=== PATIENT | female | born 1955 | race African-American/Black ===

== ENCOUNTER 2016-12-18 02:05 | Inpatient (IN) | payer OTHER, MEDICARE ==
[~2016-12-18] VITALS: Ht 167.6 cm; Wt 120.1 kg
[2016-12-18] VITALS (12 sets, daily range): BP systolic 165–217; BP diastolic 76–99; PULSE 84–100; RESP 18–24; TEMP 96.8–98.8; O2SAT 88–98
[~2016-12-18 02:05] MED LIST: ALBU17I INH; ALBU6.7H INH; DRIS8000 PO; ECOT81TA2 PO; IRON18TA2 PO; LOSA25 PO; MECL25 PO; METO25CR PO; NIFE1TAB86 PO; PRAV20 PO; PRED50 PO; SYMB160A INH; TRAD5TAB PO
--- NOTE | 2016-12-18 02:25 | PD ---
HPI Chief Complaint: Respiratory Symptoms Time Seen by Provider: 02:23 Travel History International Travel<30 days: No Contact w/Intl Traveler<30days: No Traveled to known affect area: No History of Present Illness HPI This is a 61-year-old female who has a history of COPD who presents to the emergency department with 3 days of increasing shortness of breath associated with a productive cough with green sputum, constant, worsening despite using nebulizer treatments at home, moderate severity associated with some fevers at the beginning of her illness. She does not use oxygen at home. She denies any chest pain. She has had some swelling in both of her legs which is not new. PFSH Past Medical History Blood Disorders: No Depression: Yes Cancer: No Cardiovascular Problems: Yes (htn) Congestive Heart Failure: Yes COPD: Yes Cerebrovascular Accident: No Diabetes: Yes Diminished Hearing: No Endocrine: Yes Genitourinary: No Hypertension: Yes Immune Disorder: No Musculoskeletal: No Neurologic: Yes (BELLS PALSEY) Psychiatric: Yes Reproductive: No Respiratory: Yes (copd) Migraines: No Seizures: No Menopausal: Yes Past Surgical History Abdominal Surgery: No Cardiac Surgery: No Ear Surgery: No Endocrine Surgery: No Eye Surgery: Yes Genitourinary Surgery: No Gynecologic Surgery: No Oral Surgery: No Other Surgery: Yes (FACE SURGERY) Social History Alcohol Use: No Tobacco Use: No (QUIT 06/22; PRIOR HX STS 3/4 PPD) Substance Use: No Allergies-Medications (Allergen,Severity, Reaction): Coded Allergies: Codeine (Verified Adverse Reaction, Intermediate, JITTERY, NAUSEA, 12/18/16) Reported Meds & Prescriptions Reported Meds & Active Scripts Active Reported Ferrous Fumarate 29 Mg Tab 18 Mg PO DAILY Symbicort Inh (Budesonide/Formoterol Fumarate) 160-4.5 Mcg/Act Aero 1 Puff INH Q12HR Ventolin Hfa 18 GM Inh (Albuterol Sulfate) 90 Mcg/Act Aer 2 Puff INH Q4-6H PRN Losartan (Losartan Potassium) 25 Mg Tab 25 Mg PO DAILY Metoprolol Succinate ER 24 HR (Metoprolol Succinate) 25 Mg Tab 25 Mg PO BID Tradjenta (Linagliptin) 5 Mg Tab 5 Mg PO DAILY Review of Systems Except as stated in HPI: all other systems reviewed are Neg Physical Exam Narrative GENERAL:Well appearing, no acute distress SKIN: Scar involving the right face HEAD: Atraumatic. Normocephalic. EYES: Pupils equal and round. No injection or drainage. ENT: Moist mucous membranes NECK: Trachea midline. CARDIOVASCULAR: Regular rate and rhythm. No murmur appreciated. 2+ bilateral lower extremity pitting edema. RESPIRATORY: Diffuse expiratory wheezing with poor air movement with no accessory muscle use, speaking full sentences GASTROINTESTINAL: Abdomen soft, non-tender, nondistended. MUSCULOSKELETAL: No obvious deformities. NEUROLOGICAL: Awake and alert. No obvious cranial nerve deficits. Moving all extremities. PSYCHIATRIC: Appropriate mood and affect; insight and judgment normal. Data Data Last Documented VS Vital Signs Date Time Temp Pulse Resp B/P Pulse Ox O2 Delivery O2 Flow Rate FiO2 12/18/16 03:27 93 20 214/94 93 Room Air 12/18/16 02:27 2 12/18/16 02:08 98.8 Orders Complete Blood Count With Diff (12/18/16 02:23) Comprehensive Metabolic Panel (12/18/16 02:23) B-Type Natriuretic Peptide (12/18/16 02:23) Influenzae A/B Antigen (12/18/16 02:23) Iv Access Insert/Monitor (12/18/16 02:23) Ecg Monitoring (12/18/16 02:23) Oximetry (12/18/16 02:23) Oxygen Administration (12/18/16 02:23) Chest, Single Ap (12/18/16 02:23) Sodium Chloride 0.9% Flush (Ns Flush) (12/18/16 02:30) Methylprednisolone So Succ Inj (Solumedr (12/18/16 02:30) Albuterol-Ipratropium Neb (Duoneb Neb) (12/18/16 02:30) Metoprolol Tartrate (Lopressor) (12/18/16 03:30) Azithromycin (Zithromax) (12/18/16 04:15) Labs Laboratory Tests Test 12/18/16 02:26 White Blood Count 11.0 TH/MM3 Red Blood Count 4.88 MIL/MM3 Hemoglobin 12.8 GM/DL Hematocrit 39.0 % Mean Corpuscular Volume 80.1 FL Mean Corpuscular Hemoglobin 26.2 PG Mean Corpuscular Hemoglobin 32.8 % Concent Red Cell Distribution Width 15.4 % Platelet Count 228 TH/MM3 Mean Platelet Volume 8.5 FL Neutrophils (%) (Auto) 75.1 % Lymphocytes (%) (Auto) 15.3 % Monocytes (%) (Auto) 8.0 % Eosinophils (%) (Auto) 1.2 % Basophils (%) (Auto) 0.4 % Neutrophils # (Auto) 8.3 TH/MM3 Lymphocytes # (Auto) 1.7 TH/MM3 Monocytes # (Auto) 0.9 TH/MM3 Eosinophils # (Auto) 0.1 TH/MM3 Basophils # (Auto) 0.0 TH/MM3 CBC Comment DIFF FINAL Differential Comment Sodium Level 142 MEQ/L Potassium Level 4.2 MEQ/L Chloride Level 105 MEQ/L Carbon Dioxide Level 30.9 MEQ/L Anion Gap 6 MEQ/L Blood Urea Nitrogen 22 MG/DL Creatinine 1.73 MG/DL Estimat Glomerular Filtration 36 ML/MIN Rate Random Glucose 106 MG/DL Calcium Level 9.6 MG/DL Total Bilirubin 0.3 MG/DL Aspartate Amino Transf 40 U/L (AST/SGOT) Alanine Aminotransferase 28 U/L (ALT/SGPT) Alkaline Phosphatase 98 U/L B-Type Natriuretic Peptide 57 PG/ML Total Protein 8.1 GM/DL Albumin 3.5 GM/DL MDM Medical Decision Making Medical Screen Exam Complete: Yes Emergency Medical Condition: Yes Interpretation(s) Afebrile, tachycardic, hypertensive, hypoxic No leukocytosis Renal insufficiency slightly worse than 2015 BNP is normal Chest x-ray: No acute process Differential Diagnosis Congestive heart failure, COPD exacerbation, pneumonia, pulmonary embolism, influenza Narrative Course This is a 61-year-old female with a history of COPD who presents to the emergency department with shortness of breath and productive cough been going on for several days. She was placed on a monitor and an IV was established. Labs are all reassuring and chest x-ray demonstrated no pneumonia. She is found to be hypoxic and diffusely wheezing. She was given bronchodilator treatments and IV steroids. Her symptoms improved somewhat but she continued to desaturate into the high 80s with minimal exertion. She does not use oxygen at home. Patient will be admitted for persistent hypoxia in the setting of COPD exacerbation. Physician Communication Physician Communication Discussed with Dr. Vazquez Diagnosis Primary Impression: COPD exacerbation Admitting Information Admitting Physician Requests: Admit Sulma Smith MD Dec 18, 2016 02:25
[2016-12-18] MEDS ORDERED: methylPREDNISolone SOD SUCC 125 MG/2 ML VIAL IVP ONE (02:30)
[2016-12-18] MEDS ORDERED: SODIUM CHLORIDE 0.9% FLUSH 10 ML FLUSH IVF PRN (02:30)
[2016-12-18] MEDS ORDERED: TRAD5TAB PO (02:35)
[2016-12-18] MEDS ORDERED: LOSA25TA PO (02:35)
[2016-12-18] MEDS ORDERED: VENTAER INH (02:35)
[2016-12-18] MEDS ORDERED: FERR29TA PO (02:35)
[2016-12-18] MEDS ORDERED: METO25TA6 PO (02:35)
[2016-12-18] MEDS ORDERED: SYMB160A INH ×2 (02:35→14:50)
[2016-12-18 02:50] LABS: AUTOMATED NEUTROPHIL # 8.3 TH/MM3 (1.8-7.7); BASOPHIL % 0.4 % (0.0-2.0); EOSINOPHIL # 0.1 TH/MM3 (0-0.4); EOSINOPHIL % 1.2 % (0.0-4.0); HEMO FLAGS DIFF FINAL; LYMPH % 15.3 % (9.0-44.0); LYMPHOCYTE # 1.7 TH/MM3 (1.0-4.8); MEAN CELL VOLUME 80.1 FL (80.0-100.0); MEAN CORPUSCULAR HEMOGLOBIN 26.2 PG (27.0-34.0); MEAN CORPUSCULAR HGB CONC 32.8 % (32.0-36.0); NEUT % 75.1 % (16.0-70.0); PLATELET COUNT 228 TH/MM3 (150-450); RED BLOOD COUNT 4.88 MIL/MM3 (4.00-5.30); RED CELL DISTRIBUTION WIDTH 15.4 % (11.6-17.2)
[2016-12-18] MEDS: RESP: ALBUTEROL 2.5 MG/IPRATROPIUM 0.5 MG NEB (SCH) INH ×2 (02:53→02:54)
[2016-12-18 03:05] LABS: ALT (GPT) 28 U/L (10-53); ANION GAP 6 MEQ/L (5-15); AST (GOT) 40 U/L (15-37); BICARBONATE 30.9 MEQ/L (21.0-32.0); BLOOD UREA NITROGEN 22 MG/DL (7-18); CHLORIDE 105 MEQ/L (98-107); GLOMERULAR FILTRATION RATE 36 ML/MIN (>89); POTASSIUM 4.2 MEQ/L (3.5-5.1); SODIUM (NA) 142 MEQ/L (136-145)
[2016-12-18 03:07] LABS: ALKALINE PHOSPHATASE 98 U/L (45-117); TOTAL BILIRUBIN ADULT 0.3 MG/DL (0.2-1.0)
--- NOTE | 2016-12-18 03:18 | RADRPT ---
EXAM DATE/TIME: 12/18/2016 02:41 [facility] COMPARISON: CHEST SINGLE AP, November 25, 2014, 2:16. INDICATIONS : Shortness of breath. MEDICAL HISTORY : Hypertension. Chronic obstructive pulmonary disease. SURGICAL HISTORY : None. ENCOUNTER: Initial ACUITY: 1 day PAIN SCORE: 0/10 LOCATION: Bilateral chest FINDINGS: The lungs are clear without infiltrate, nodule, or mass. There is no appreciable pleural effusion fo r technique. Heart and mediastinum are unremarkable. CONCLUSION: No acute cardiopulmonary disease. Francisco Miramontes MD on December 18, 2016 at 3:16 Board Certified Radiologist. This report was verified electronically.
[2016-12-18] MEDS ORDERED: METOPROLOL TARTRATE 25 MG TAB PO ONE (03:30)
[2016-12-18] MEDS ORDERED: AZITHROMYCIN 250 MG TAB PO ONE (04:15)
[2016-12-18] MEDS ORDERED: RESP: ALBUTEROL 1.25 MG/3 ML NEB (PRN) NEB (04:30)
[2016-12-18] MEDS ORDERED: GLUCAGON 1 MG/ML VIAL OTHER PRN (04:30)
[2016-12-18] MEDS ORDERED: DEXTROSE 50% IN WATER 50 ML VIAL(D50) IV PUSH PRN (04:30)
[2016-12-18] MEDS ORDERED: ONDANSETRON HCL 4 MG/2 ML VIAL IV PUSH PRN (04:30)
[2016-12-18] MEDS ORDERED: NIFEdipine 30 MG SUSTAINED RELEASE TAB PO ONE (06:00)
[2016-12-18] MEDS ORDERED: NIFEdipine 30 MG SUSTAINED RELEASE TAB PO SCH (06:00)
[2016-12-18] MEDS: INSULIN ASPART SUPPLEMENTAL SCALE SQ SCH ×3 (06:24→16:23)
--- NOTE | 2016-12-18 07:55 | HHI.HP ---
[facility] Marybeth Covarrubias MD Admission Diagnosis copd exacerbation Diagnoses: Chief Complaint: Shortness of breath Travel History International Travel<30 Days: No Contact w/Intl Traveler <30 Da: No Traveled to Known Affected Are: No History of Present Illness 61-year-old female with a medical history significant for hypertension, hyperlipidemia, type 2 diabetes and COPD presents to the emergency room with complaint of 3 days of worsening shortness of breath, cough with green and white sputum production. Patient is unsure whether or not she has had fevers. She tried nebulizer treatment at home without improvement in shortness of breath. She reports previously having problems with shortness of breath when she gets a cold but has never required hospitalizations. She does have chronic bilateral lower extremity swelling. Review of Systems Constitutional: DENIES: Fever, Chills Respiratory: COMPLAINS OF: Cough, Sputum production, Shortness of breath Cardiovascular: DENIES: Chest pain, Palpitations Except as stated in HPI: all other systems reviewed are Neg Past Family Social History Past Medical History Hypertension Hyperlipidemia COPD Diabetes Chronic kidney disease Past Surgical History Left shoulder surgery Hernia repair Facial reconstructive surgery. Reported Medications Reported Meds & Active Scripts Active Reported Amlodipine (Amlodipine Besylate) 5 Mg Tab 5 Mg PO DAILY Ferrous Fumarate 29 Mg Tab 18 Mg PO DAILY Symbicort Inh (Budesonide/Formoterol Fumarate) 160-4.5 Mcg/Act Aero 1 Puff INH Q12HR Ventolin Hfa 18 GM Inh (Albuterol Sulfate) 90 Mcg/Act Aer 2 Puff INH Q4-6H PRN Losartan (Losartan Potassium) 25 Mg Tab 25 Mg PO DAILY Metoprolol Succinate ER 24 HR (Metoprolol Succinate) 25 Mg Tab 25 Mg PO BID Tradjenta (Linagliptin) 5 Mg Tab 5 Mg PO DAILY Allergies: Coded Allergies: Codeine (Verified Adverse Reaction, Intermediate, JITTERY, NAUSEA, 12/18/16) Family History Mother with history of renal failure. Two sisters on dialysis one sister with breast cancer Social History Patient admits to smoking three-quarter pack per day for the past 40+ years. Denies alcohol or illicit drug use Physical Exam Vital Signs Vital Signs Date Time Temp Pulse Resp B/P Pulse Ox O2 Delivery O2 Flow Rate FiO2 12/18/16 06:00 97.6 88 20 187/89 96 12/18/16 05:44 88 18 176/85 94 Nasal Cannula 2 12/18/16 05:36 174/86 12/18/16 05:17 94 Nasal Cannula 2.00 12/18/16 03:27 93 20 214/94 93 Room Air 12/18/16 02:27 93 Nasal Cannula 2 12/18/16 02:23 92 22 93 2 12/18/16 02:21 90 22 217/99 88 12/18/16 02:15 92 24 217/99 88 Room Air 12/18/16 02:08 98.8 100 24 166/81 92 Room Air Physical Exam CONSTITUTIONAL/GENERAL: Obese female in no apparent distress. Vital signs reviewed SKIN: No jaundice, rashes, or concerning lesions. Not diaphoretic. HEAD: Atraumatic. Normocephalic. EYES: Pupils equal and round and reactive. Extra ocular motions are intact. No scleral icterus. No injection or drainage. ENT: Hearing grossly normal. Nose without drainage. Throat without visible erythema, exudates, masses, or lesions. NECK: Trachea midline. Neck is supple, non-tender. No palpable thyroid enlargement or nodularity. CARDIOVASCULAR: Normal rate and regular rhythm without murmurs, gallops, or rubs. No JVD. Peripheral pulses 2+ and symmetric. RESPIRATORY/CHEST: Symmetric, diffuse wheezing and rhonchi bilaterally. GASTROINTESTINAL: Abdomen soft, non-tender, non-distended. No hepato- splenomegaly, or palpable masses. No guarding. Bowel sounds present. MUSCULOSKELETAL: Extremities without clubbing, cyanosis, or edema. No joint tenderness or effusion noted. No calf tenderness. No mottling or clubbing. NEUROLOGICAL: Awake and alert. Motor and sensory grossly within normal limits. Follows commands. Move all extremities spontaneously. No focal deficits. PSYCHIATRIC: No obvious mood problems. No apparent hallucinations or other psychotic thought process. Laboratory Laboratory Tests Test 12/18/16 02:26 White Blood Count 11.0 Red Blood Count 4.88 Hemoglobin 12.8 Hematocrit 39.0 Mean Corpuscular Volume 80.1 Mean Corpuscular Hemoglobin 26.2 Mean Corpuscular Hemoglobin 32.8 Concent Red Cell Distribution Width 15.4 Platelet Count 228 Mean Platelet Volume 8.5 Neutrophils (%) (Auto) 75.1 Lymphocytes (%) (Auto) 15.3 Monocytes (%) (Auto) 8.0 Eosinophils (%) (Auto) 1.2 Basophils (%) (Auto) 0.4 Neutrophils # (Auto) 8.3 Lymphocytes # (Auto) 1.7 Monocytes # (Auto) 0.9 Eosinophils # (Auto) 0.1 Basophils # (Auto) 0.0 CBC Comment DIFF FINAL Differential Comment Sodium Level 142 Potassium Level 4.2 Chloride Level 105 Carbon Dioxide Level 30.9 Anion Gap 6 Blood Urea Nitrogen 22 Creatinine 1.73 Estimat Glomerular Filtration 36 Rate Random Glucose 106 Calcium Level 9.6 Total Bilirubin 0.3 Aspartate Amino Transf 40 (AST/SGOT) Alanine Aminotransferase 28 (ALT/SGPT) Alkaline Phosphatase 98 B-Type Natriuretic Peptide 57 Total Protein 8.1 Albumin 3.5 Date/Time Procedure Status Source Growth 12/18/16 02:26 Influenza Types A,B Antigen (NICO) - Final Complete Nasal Washing NEGATIVE FOR FLU A AND B ANTIGEN.... Result Diagram: 12/18/1622512/18/16225 Imaging Last Impressions Chest X-Ray 12/18/16222 Signed Impressions: Service Date/Time: Sunday, December 18, 2016 02:41 - CONCLUSION: No acute cardiopulmonary disease. Francisco Miramontes MD Assessment and Plan Problem List: (1) COPD exacerbation ICD Code: J44.1 Status: Acute Plan: - IV Solu-Medrol ordered - Scheduled breathing treatments with duo nebs. Albuterol nebs as needed. - Antibiotics with Rocephin and azithromycin - Supplemental oxygen as needed - Incentive spirometer (2) Hypertension ICD Code: I10 Status: Acute Plan: Uncontrolled. Restart home dose losartan, metoprolol, and Norvasc. Add clonidine as needed (3) Diabetes ICD Code: E11.9 Status: Acute Plan: Resume home dose Tradjenta. Expect worsening of blood glucose from steroids. - Sliding scale insulin with Accu-Cheks. (4) Hyperlipidemia ICD Code: E78.5 Status: Acute Plan: Continue statin (5) Kidney disease, chronic, stage III (GFR 30-59 ml/min) ICD Code: N18.3 Status: Acute Plan: Continue to monitor. Avoid nephrotoxins Assessment and Plan GI prophylaxis: PPI. Stool softener PRN constipation. DVT PPx: Lovenox Discussed Condition With RN Physician Certification 2 Midnight Certification Type: Admission for Inpatient Services Order for Inpatient Services The services are ordered in accordance with Medicare regulations or non- Medicare payer requirements, as applicable. In the case of services not specified as inpatient-only, they are appropriately provided as inpatient services in accordance with the 2-midnight benchmark. Estimated LOS (days): 3 days is the estimated time the patient will need to remain in the hospital, assuming treatment plan goals are met and no additional complications. Post-Hospital Plan: Home Edis Vann MD Dec 18, 2016 07:55
[2016-12-18] MEDS: RESP: ALBUTEROL 2.5 MG/IPRATROPIUM 0.5 MG NEB (SCH) NEB ×3 (08:09→15:54)
[2016-12-18] MEDS ORDERED: cloNIDine HCL 0.1 MG TAB PO PRN (08:30)
[2016-12-18] MEDS ORDERED: BUDESONIDE-FORMOTEROL 160/4.5 MCG INHALER INH SCH (09:00)
[2016-12-18] MEDS ORDERED: LOSARTAN 25 MG TAB PO SCH (09:00)
[2016-12-18] MEDS ORDERED: NON-FORMULARY DRUG (Linagliptin (Tradjenta) 5 MG) PO SCH (09:00)
[2016-12-18] MEDS ORDERED: METOPROLOL SUCCINATE 25 MG EXTENDED RELEASE TAB PO SCH (09:00)
[2016-12-18] MEDS ORDERED: cefTRIAXone INJ 1,000 MG in SODIUM CHLORIDE 0.9% INJ 100 ML IV SCH (09:00)
[2016-12-18] MEDS ORDERED: AMLO5TAB2 PO (09:52)
[2016-12-18] MEDS ORDERED: methylPREDNISolone SOD SUCC 40 MG/1 ML VIAL IV PUSH SCH (11:00)
[2016-12-18] MEDS ORDERED: amLODIPine BESYLATE 5 MG TAB PO SCH (11:00)
--- NOTE | 2016-12-18 13:32 | EKG ---
Date Performed: 12/18/2016 Time Performed: 04:34:25 PTAGE: 61 years EKG: Sinus rhythm POSSIBLE LEFT ATRIAL ENLARGEMENT POSSIBLE LEFT VENTRICULAR HYPERTROPHY NONSPECIFIC T-WAVE ABNORMALIT Y ABNORMAL ECG Compared to prior tracing no significant change PREVIOUS TRACING : 10/08/2014 07.18 DOCTOR: Du Mitchell Interpretating Date/Time 12/18/2016 13:31:22
[2016-12-18] MEDS ORDERED: AZIT250T3 PO (14:50)
[2016-12-18] MEDS ORDERED: CEFU1TAB20 PO (14:50)
[2016-12-18] MEDS ORDERED: PRED50 PO (14:50)
--- NOTE | 2016-12-18 14:50 | HHI.DCPOC ---
Discharge Care Plan Diagnosis: (1) COPD exacerbation (2) Hypertension (3) Kidney disease, chronic, stage III (GFR 30-59 ml/min) (4) Diabetes Goals to Promote Your Health * To prevent worsening of your condition and complications * To maintain your health at the optimal level Directions to Meet Your Goals Take your medications as prescribed Follow your dietary instruction Follow activity as directed Keep your appointments as scheduled Take your immunizations and boosters as scheduled If your symptoms worsen call your PCP, if no PCP go to Urgent Care Center or Emergency Room Smoking is Dangerous to Your Health. Avoid second hand smoke Call the 24-hour hour crisis hotline for domestic abuse at Edis Vann MD Dec 18, 2016 14:50
[2016-12-18] MEDS ORDERED: ENOXAPARIN SODIUM 30 MG/0.3 ML SYRINGE SQ SCH (15:00)
[2016-12-18] MEDS ORDERED: methylPREDNISolone SOD SUCC 125 MG/2 ML VIAL IV PUSH SCH (15:00)
[2016-12-19] MEDS ORDERED: PT OWN - TRADJENTA 5 MG PO SCH (09:00)
[2016-12-19] MEDS ORDERED: FERROUS FUMARATE 325 MG TAB (106 MG ELEMENTAL IRON) PO SCH (09:00)
[2016-12-19] MEDS ORDERED: AZITHROMYCIN 250 MG TAB PO SCH (09:00)
== END 2016-12-18 18:10 | disposition home or self-care (01) | DRG 192 ==
LOC: NEPE 02:05 → NEDA 04:21 → HOCA 05:57
PROVIDERS: ADMIT Family Medicine; ATTEND Family Medicine
DX: J44.1 Chronic obstructive pulmonary disease with (acute) exacerbation (principal); E11.22 Type 2 diabetes mellitus with diabetic chronic kidney disease; I50.9 Heart failure, unspecified; N18.3 Chronic kidney disease, stage 3 (moderate); I12.9 Hypertensive chronic kidney disease with stage 1 through stage 4 chronic kidney disease, or unspecified chronic kidney disease; F32.9 Major depressive disorder, single episode, unspecified; G51.0 Bell's palsy; R09.02 Hypoxemia; E78.5 Hyperlipidemia, unspecified; F17.210 Nicotine dependence, cigarettes, uncomplicated; Z80.3 Family history of malignant neoplasm of breast
CPT/HCPCS: 71010; 80053; 82948; 83880; 85025; 87804; 93005; 94640; 94664; 96374; J0696; J1815; J2930

== ENCOUNTER → 2017-02-03 | Outpatient (CLI) | payer OTHER ==
[~2017-02-03] MED LIST changes: -ALBU17I INH; -ALBU6.7H INH; +AMLO5TAB2 PO; +AZIT250T3 PO; +CEFU1TAB20 PO; -DRIS8000 PO; -ECOT81TA2 PO; +FERR29TA PO; -IRON18TA2 PO; -LOSA25 PO; +LOSA25TA PO; -MECL25 PO; -METO25CR PO; +METO25TA6 PO; -NIFE1TAB86 PO; -PRAV20 PO; +VENTAER INH
[2017-02-03 14:02] LABS: BLOOD GAS BASE EXCESS 1.6 mmol/L (-2-2); BLOOD GAS CARBOXYHEMOGLOBIN 2.1 % (0-4); BLOOD GAS HCO3 26 mmol/L (22-26); BLOOD GAS METHEMOGLOBIN 1.2 % (0-2); BLOOD GAS O2 HGB SATURATION 92 % (90-100); BLOOD GAS OXYGEN CONTENT 16.2 Vol % (12.0-20.0); BLOOD GAS PCO2 45 mmHg (38-42); BLOOD GAS PO2 75 mmHg (61-120); BLOOD GAS TOTAL HGB 12.5 G/DL (12.0-16.0); CRITICAL VALUE NO; DRAW SITE RT RADIAL; FIO2 21 %; NUMBER OF ARTERIAL PUNCTURES 1; STAT NO; TEMP CORR TO 98.6; ULNAR PULSE PRESENT
--- NOTE | 2017-02-05 08:27 | RSPPFT ---
DATE OF PROCEDURE: 02/03/17 COMMENTS: Spirometry shows FVC of 0.6 at 19% of predicted, FEV1 of 0.5 at 21%, FEV1/FVC ratio is normal. Flow is decreased at FEF 25, FEF 50, FEF 75 and FEF 25-75. There is a good response after bronchodilator treatment. Lung volumes show residual volume is increased. TLC is increased. Flow volume loop indicates a restrictive pattern. Room air arterial blood gases show pH of 7.38, PCO2 of 45, PO2 of 76, O2 Saturation at 92%. IMPRESSION: 1. Restrictive lung disease. 2. Obstructive lung disease. 3. Hyperinflation. 4. Very good response after bronchodilator treatment. 5. Blood gases show mild hypoxia on room air.
== END ==
LOC: HRSP 12:24
PROVIDERS: ATTEND Specialist
DX: R06.00 Dyspnea, unspecified (principal)
CPT/HCPCS: 36600; 82805; 94060; 94620; 94726; 94729

== ENCOUNTER 2017-04-06 11:13 | Emergency (ER) | payer OTHER ==
[~2017-04-06] VITALS: Ht 167.6 cm; Wt 105.0 kg
[2017-04-06 11:15] VITALS: BP 205/94; PULSE 72; RESP 15; TEMP 97.8; O2SAT 98
[2017-04-06 11:52] VITALS: BP 183/89; PULSE 70
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
[2017-04-06] MEDS ORDERED: KETOROLAC TROMETHAMINE 60 MG/2 ML (IM) VIAL IM ONE (13:30)
== END 2017-04-06 14:18 | disposition home or self-care (01) ==
LOC: NEPK 11:13
DX: S83.92XA Sprain of unspecified site of left knee, initial encounter (principal); W19.XXXA Unspecified fall, initial encounter; Y93.83 Activity, rough housing and horseplay; M19.90 Unspecified osteoarthritis, unspecified site; I10 Essential (primary) hypertension; J44.9 Chronic obstructive pulmonary disease, unspecified
CPT/HCPCS: 73564; 96372; 99284; J1885

== ENCOUNTER 2017-09-15 15:09 | Emergency (ER) | payer OTHER ==
[~2017-09-15] VITALS: Ht 167.6 cm; Wt 113.6 kg
[~2017-09-15 15:09] MED LIST changes: +METO1TAB42 PO; -METO25TA6 PO
[2017-09-15 15:19] VITALS: BP 203/101; PULSE 90; RESP 13; O2SAT 96
[2017-09-15 15:24] VITALS: BP 178/80
--- NOTE | 2017-09-15 16:20 | RADRPT ---
EXAM DATE/TIME: 09/15/2017 16:12 [facility] COMPARISON: No previous studies available for comparison. INDICATIONS : Left ankle pain, fell today. MEDICAL HISTORY : None. SURGICAL HISTORY : None. ENCOUNTER: Initial ACUITY: 1 day PAIN SCORE: 10/10 LOCATION: Left ankle FINDINGS: Spiral fracture distal fibula. Minimal plantar spurring. Minimally is intact. CONCLUSION: Spiral fracture distal fibula. Braxton Kapoor MD FACR on September 15, 2017 at 16:18 Board Certified Radiologist. This report was verified electronically.
[2017-09-15] MEDS ORDERED: HYDR-4107 PO (16:28)
[2017-09-15] MEDS ORDERED: ZOFR4TAB3 SL (16:29)
[2017-09-15] MEDS ORDERED: ONDANSETRON ODT 4 MG TAB PO ONE (16:30)
[2017-09-15] MEDS ORDERED: ACETAMINOPHEN/HYDROcodone 325 MG/5 MG TAB PO ONE (16:30)
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
[2017-09-15] MEDS ORDERED: WALKER/ADULT/FO1 MIS (17:08)
== END 2017-09-15 17:14 | disposition home or self-care (01) ==
LOC: NEPK 15:09
DX: S82.832A Other fracture of upper and lower end of left fibula, initial encounter for closed fracture (principal); W01.0XXA Fall on same level from slipping, tripping and stumbling without subsequent striking against object, initial encounter; E11.9 Type 2 diabetes mellitus without complications; E78.5 Hyperlipidemia, unspecified; I11.0 Hypertensive heart disease with heart failure; I50.9 Heart failure, unspecified; J44.9 Chronic obstructive pulmonary disease, unspecified; F32.9 Major depressive disorder, single episode, unspecified
CPT/HCPCS: 29515; 73610

== ENCOUNTER 2017-10-11 18:19 | Emergency (ER) | payer OTHER ==
[~2017-10-11] VITALS: Ht 172.7 cm; Wt 113.6 kg
[~2017-10-11 18:19] MED LIST changes: -AZIT250T3 PO; -CEFU1TAB20 PO; +HYDR-4107 PO; -PRED50 PO; +WALKER/ADULT/FO1 MIS; +ZOFR4TAB3 SL
[2017-10-11 18:22] VITALS: BP 168/93; PULSE 84; RESP 24; TEMP 98.7; O2SAT 97
--- NOTE | 2017-10-11 19:20 | RADRPT ---
EXAM DATE/TIME: 10/11/2017 18:59 [facility] COMPARISON: No previous studies available for comparison. INDICATIONS : Short of breath MEDICAL HISTORY : Hypertension. Chronic obstructive pulmonary disease. SURGICAL HISTORY : None. ENCOUNTER: Initial ACUITY: 3 days PAIN SCORE: 0/10 LOCATION: chest FINDINGS: The heart is enlarged. Mild pulmonary vascular congestion is noted. No focal alveolar consolidation i s noted CONCLUSION: 1. Cardiomegaly. 2. Mild pulmonary vascular congestion. Sukumar Coleman MD on October 11, 2017 at 19:17 Board Certified Radiologist. This report was verified electronically.
[2017-10-11 20:35] LABS: AUTOMATED NEUTROPHIL # 4.9 TH/MM3 (1.8-7.7); BASOPHIL % 0.3 % (0.0-2.0); EOSINOPHIL # 0.2 TH/MM3 (0-0.4); HEMOGLOBIN 12.8 GM/DL (11.6-15.3); LYMPH % 21.4 % (9.0-44.0); LYMPHOCYTE # 1.6 TH/MM3 (1.0-4.8); MEAN CELL VOLUME 79.6 FL (80.0-100.0); MEAN CORPUSCULAR HEMOGLOBIN 26.7 PG (27.0-34.0); MEAN CORPUSCULAR HGB CONC 33.6 % (32.0-36.0); MEAN PLATELET VOLUME 8.1 FL (7.0-11.0); MONO % 9.3 % (0.0-8.0); MONOCYTE # 0.7 TH/MM3 (0-0.9); PLATELET COUNT 236 TH/MM3 (150-450); RED BLOOD COUNT 4.78 MIL/MM3 (4.00-5.30); RED CELL DISTRIBUTION WIDTH 14.7 % (11.6-17.2); WHITE BLOOD COUNT 7.4 TH/MM3 (4.0-11.0)
[2017-10-11 20:46] LABS: PROTHROMBIN TIME - PATIENT 9.9 SEC (9.8-11.6)
[2017-10-11 20:58] LABS: BICARBONATE 30.1 MEQ/L (21.0-32.0); BLOOD UREA NITROGEN 29 MG/DL (7-18); CALCIUM 9.4 MG/DL (8.5-10.1); CHLORIDE 107 MEQ/L (98-107); CREATININE 1.79 MG/DL (0.50-1.00); GLOMERULAR FILTRATION RATE 35 ML/MIN (>89); GLUCOSE,RANDOM 104 MG/DL (74-106); MAGNESIUM 2.1 MG/DL (1.5-2.5); SODIUM (NA) 141 MEQ/L (136-145)
[2017-10-11 21:02] LABS: TROPONIN I LESS THAN 0.02 NG/ML (0.02-0.05)
[2017-10-11 21:17] VITALS: BP 206/88; O2SAT 99
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
[2017-10-11 21:48] VITALS: BP 190/81; PULSE 76; RESP 20; O2SAT 99
[2017-10-11 22:09] VITALS: BP 188/84
[2017-10-11] MEDS ORDERED: methylPREDNISolone SOD SUCC 125 MG/2 ML VIAL IV PUSH ONE (22:15)
[2017-10-11] MEDS ORDERED: LABETALOL HCL 100 MG/20 ML VIAL IV PUSH ONE (22:15)
[2017-10-11] MEDS ORDERED: LEVOFLOXACIN 500 MG PREMIX INJ 100 ML IV ONE (22:15)
[2017-10-11] MEDS: RESP: ALBUTEROL 2.5 MG/IPRATROPIUM 0.5 MG NEB (SCH) INH ×2 (22:17→22:18)
[2017-10-11 22:51] VITALS: BP 145/65; PULSE 86; RESP 20; O2SAT 95
[2017-10-11 23:55] VITALS: BP 148/65; PULSE 75; RESP 20; O2SAT 98
[2017-10-12] MEDS ORDERED: LEVA500T33 PO (00:05)
[2017-10-12] MEDS ORDERED: MEDR4PAK PO (00:05)
--- NOTE | 2017-10-13 00:45 | EKG ---
Date Performed: 10/11/2017 Time Performed: 21:14:34 PTAGE: 62 years EKG: Sinus rhythm POSSIBLE LEFT ATRIAL ENLARGEMENT NONSPECIFIC T-WAVE ABNORMALITY BORDERLINE ECG PREVIOUS TRACING : 12/18/2016 04.34 Since the prior tracing, there has been no significant crook DOCTOR: Scooby Cardona Interpretating Date/Time 10/13/2017 00:43:39
== END 2017-10-12 00:37 | disposition home or self-care (01) ==
LOC: NEPE 18:19
DX: J40 Bronchitis, not specified as acute or chronic (principal); J44.1 Chronic obstructive pulmonary disease with (acute) exacerbation; R94.31 Abnormal electrocardiogram [ECG] [EKG]; E11.9 Type 2 diabetes mellitus without complications; E78.5 Hyperlipidemia, unspecified; F32.9 Major depressive disorder, single episode, unspecified; I50.9 Heart failure, unspecified; I10 Essential (primary) hypertension; F17.210 Nicotine dependence, cigarettes, uncomplicated; Z88.5 Allergy status to narcotic agent
CPT/HCPCS: 71046; 80048; 82550; 82552; 83735; 83880; 84484; 85025; 85610; 85730; 93005; 94640; 94664; 96365; 96375; 99285; J1956; J2930